=== PATIENT | female | born 1960 | race Caucasian/White ===

== ENCOUNTER 2016-10-01 12:39 | Emergency (ER) | payer BC ==
--- NOTE | ~2016-10-01 | CR170 ---
[facility] A Service of [facility] & [facility] / [facility] RADIOLOGY TEXT RESULTS PATIENT: EUFEMIA ESPINOZA LOCATION: CFTX : 58 UNIT #: [id number] AGE: [address]: Temitope Retana SEX: F ORDER DR: [id number] [place], [place] [address] [id number] MR#: [id number] Acc #: [id number] NAME: EUFEMIA ESPINOZA : 1960 SEX: F STUDY DATE/TIME: 10/01/2016 12:45 UNIT: [facility] ROOM: STUDY DESCRIPTION: CR Knee 2 Views Rt Attending Physician: Temitope Retana Pa-C Referring Physician: Gabriel Tran M.D. Ordering Physician: Temitope Retana Pa-C Primary Care Physician: Gabriel Tran M.D. MEDICAL IMAGING REPORT This report is preliminary unless electronic signature is present EXAM Right knee, 2 views. HISTORY 56-year-old female with right knee pain for 2 weeks. Cannot bear weight. COMPARISON No comparisons. FINDINGS No joint effusion. Mild medial compartment narrowing. No fracture. IMPRESSION Mild medial compartment narrowing; otherwise, unremarkable. Dictated by... Micha aSnchez M.D. THIS IS AN ELECTRONICALLY VERIFIED REPORT Micha Sanchez M.D. at 10/01/2016 4:41 PM MARIELLA/paul TD: 10/01/2016 15:52 JOB #: [id number] MEDICAL IMAGING REPORT Page 1 of 1 COPY
[~2016-10-01 12:39] MED LIST: COL-RITE250 MG PO; COLACE PO; DICLOFENAC PO; EFFEXOR100 MG PO; LASIX20 MG PO; LIDODERM30 EA TOP; RANITIDINE HCL150 M1 PO; TYLOX 5-500 CA1 EACH PO; TYLOX1 CAP 5/50 PO; VITAMIN D-32000 UNIT PO; ZIPSOR25 MG PO
== END 2016-10-01 14:05 | disposition home or self-care (01) ==
LOC: CFTX 12:39
DX: S86.911A Strain of unspecified muscle(s) and tendon(s) at lower leg level, right leg, initial encounter (principal); X50.1XXA Overexertion from prolonged static or awkward postures, initial encounter; Y92.009 Unspecified place in unspecified non-institutional (private) residence as the place of occurrence of the external cause; E03.9 Hypothyroidism, unspecified
CPT/HCPCS: 73560; 99283